=== PATIENT | female | born 1980 | race Caucasian/White ===

== ENCOUNTER → 2020-12-01 13:20 | Outpatient (BNVA) | payer MEDICAID, SELFPAY | PROVIDERS: Family Provider Internal Medicine; PCP Internal Medicine; Visit Provider Psychiatry & Neurology Psychiatry | DX: F33.1 Major depressive disorder, recurrent, moderate (principal); F41.1 Generalized anxiety disorder; Z63.4 Disappearance and death of family member | CPT/HCPCS: 99204 ==

== ENCOUNTER → 2021-05-17 09:38 | Outpatient (BNVA) | payer MEDICAID, SELFPAY | PROVIDERS: Family Provider Internal Medicine; PCP Internal Medicine; Visit Provider Psychiatry & Neurology Psychiatry | DX: F41.1 Generalized anxiety disorder (principal); F33.1 Major depressive disorder, recurrent, moderate; Z63.4 Disappearance and death of family member | CPT/HCPCS: 99214 ==

== ENCOUNTER → 2021-05-30 09:57 | Outpatient (BNVA) | payer MEDICAID, SELFPAY | PROVIDERS: Family Provider Internal Medicine; PCP Internal Medicine; Visit Provider Nurse Practitioner Family | DX: Z20.822 Contact with and (suspected) exposure to COVID-19 (principal) | CPT/HCPCS: 87635 ==

== ENCOUNTER 2021-09-06 13:33 | Emergency (ER) | payer MEDICAID, SELFPAY ==
[2021-09-06 13:46] VITALS: BP 139/93; PULSE 110; RESP 18; TEMP 36.8; O2SAT 95; BMI 45.4
--- NOTE | 2021-09-06 13:58 | XR_ITS ---
WS: [id number] Exam: XR chest 1V portable [id number] Date/Time of Exam: 09/06/2021 1:58 PM Reason For Exam: chest pain Comparison 03/16/2009. There are patchy groundglass infiltrates scattered throughout both lungs suggesting pneumonia. Cardio mediastinal structures are unremarkable. No pleural effusions or pneumothorax. Regional bony elements are intact. XR/XR chest 1V portable [id number] IMPRESSION: 1. Patchy groundglass infiltrates noted bilaterally. The pattern is nonspecific but this can be seen with Covid pneumonia.
--- NOTE | 2021-09-06 13:59 | ECG_ITS ---
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
--- NOTE | 2021-09-06 14:54 | W.ED.COVID ---
Documented by User: AYAZ Larson 09/06/21 16:59 HPI - COVID General: Chief Complaint: Chest Pain Stated Complaint: CHEST PAIN/DIARRHEA/BODY ACHES Time Seen by Provider: 09/06/21 14:37 Source: patient Mode of arrival: ambulatory Limitations: no limitations Triage information: Has fever, cough or shortness of breath. No known COVID + exposure last 14 days History of Present Illness: HPI Narrative: Patient is a 41-year-old female presents to ED today with a complaint of body aches, chills, fevers of up to 100.2, diarrhea, chest pressure, and shortness of breath with exertion. Symptoms have been present over the past 7 days. No sick contacts. Patient is unvaccinated for COVID. She has not had any vomiting. MD complaint: has COVID symptoms Prior covid testing: no COVID 19 common symptoms: positive fever(s), chills, dyspnea, fatigue, body aches, headache(s), diarrhea and chest tightness; negative throat pain, nasal congestion, nausea or vomiting COVID 19 other sytmptoms: positive chest pain Onset (ago): day(s) Severity: moderate Pertinent comorbid conditions: obesity COVID Results: SARS-CoV-2 Antigen (Rapid) Negative (Negative) 09/06/21 16:50 09/06/21 SARS-CoV-2 RNA (RT-PCR) Not detected (NOT DETECTED) 05/30/21 09:57 05/30/21 Review of Systems Const: Reports: fever(s), chills, body aches and fatigue Eyes: Denies: change in vision, blurry vision or photophobia ENMT: Denies: throat pain, odynophagia, nasal discharge, nasal congestion, post nasal drip or sinus pain Card: Reports: chest pain and dyspnea on exertion; Denies: palpitations, irregular heart rhythm, edema, swelling of feet/ankles, lightheadedness, syncope, pre-syncope, orthopnea, leg pain with exertion or acrocyanosis Resp: Reports: dyspnea; Denies: wheezing, hemoptysis or chest congestion GI: Reports: diarrhea; Denies: abdominal pain, nausea or vomiting : Denies: flank pain or dysuria Musc: Reports: back pain and other (reports generalized body aches); Denies: neck pain, extremity pain, extremity swelling, joint pain or joint swelling Skin/Breast: Denies: rash Neuro: Reports: headache(s); Denies: numbness in extremities, weakness in extremities, sensory changes or dizziness PFSH ED PFSH: Social History Smoking and tobacco status: never smoked Second hand smoke exposure: Yes Physical Exam Const: COMMON NORMALS: no acute distress, patient oriented x3, no limitations and alert GENERAL APPEARANCE: cooperative NUTRITIONAL APPEARANCE: obese ORIENTATION/CONSCIOUSNESS: Yes awake, Yes oriented to person, Yes oriented to place and Yes oriented to time HENMT: COMMON NORMALS: normocephalic and atraumatic HEAD & SCALP: normocephalic and atraumatic Resp: COMMON NORMALS: normal respiratory effort and clear to auscultation bilaterally AUSCULTATION: clear to auscultation bilaterally Cardio: COMMON NORMALS: regular rhythm RATE: tachycardic RHYTHM: regular rhythm GI: COMMON NORMALS: Normal to inspection, nondistended, normoactive bowel sounds present, Soft to palpation, non-tender, No hepatosplenomegaly present and no masses PALPATION: Yes Soft to palpation and Yes No hepatosplenomegaly present Extremity: COMMON NORMALS: normal to inspection, capillary refill normal, no joint enlargement, no clubbing, cyanosis or edema, no calf tenderness and no pedal edema Neuro: COMMON NORMALS: patient oriented x3, moves all extremities, no focal motor deficits and no sensory deficits noted SENSORIUM/ORIENTATION: Yes alert, Yes oriented to person, Yes oriented to place and Yes oriented to time Skin: COMMON NORMALS: no rashes or lesions noted GENERAL SKIN EXAM: no rashes or lesions noted Course Vital Signs: Vital signs: Vital Signs Temperature 98.3 F 09/06/21 16:46 Pulse Rate 97 09/06/21 16:46 Respiratory Rate 16 09/06/21 16:46 Blood Pressure 141/97 09/06/21 16:46 Pulse Oximetry 96 09/06/21 16:46 MDM - COVID Lab Data: Labs: Lab Results 09/06/21 09/06/21 09/06/21 16:50 16:50 16:55 WBC 3.4 10^3/uL L 10^ 3/uL (4.0-10.0) RBC 4.17 10^6/uL 10^6 /uL (4.1-5.3) Hgb 13.5 g/dL g/dL (11.5-15.3) Hct 40.3 % % (37.0-47.0) MCV 96.6 fl fl (81-99) MCH 32.4 pg pg (28.0-34.0) MCHC 33.5 g/dL g/dL (30.0-36.0) RDW 12.0 % L % (12.1-15.1) Plt Count 165 10^3/cmm 10^3 /cmm (130-400) MPV 10.6 fL H fL (7.4-10.4) Neut % (Auto) 79.7 % % Lymph % (Auto) 13.2 % % [place] % (Auto) 6.5 % % Eos % (Auto) 0.0 % % Baso % (Auto) 0.3 % % Neut # (Auto) 2.72 10^3/uL 10^3 /uL (1.8-7.7) Lymph # (Auto) 0.5 10^3/uL L 10^ 3/uL (0.8-4.8) [place] # (Auto) 0.2 10^3/uL 10^3/ uL (0.2-0.9) Eos # (Auto) 0.0 10^3/uL 10^3/ uL (0.0-0.8) Baso # (Auto) 0.0 10^3/uL 10^3/ uL (0.0-0.1) Nucleated RBC % (a uto) 0 % % Nucleated RBCs # 0.0 /100WBC /100W BC Sodium Potassium Chloride Carbon Dioxide Anion Gap BUN Creatinine GFR Calculation Glucose Calculated Osmolal ity Calcium Total Bilirubin AST ALT Alkaline Phosphata se Troponin T Baselin e C-Reactive Protein Total Protein Albumin Globulin Procalcitonin Influenza Type A A g Negative (Negative) Influenza Type B A g Negative (Negative) SARS-CoV-2 Ag (Rap id) Negative (Negative) 09/06/21 09/06/21 16:55 16:55 WBC RBC Hgb Hct MCV MCH MCHC RDW Plt Count MPV Neut % (Auto) Lymph % (Auto) [place] % (Auto) Eos % (Auto) Baso % (Auto) Neut # (Auto) Lymph # (Auto) [place] # (Auto) Eos # (Auto) Baso # (Auto) Nucleated RBC % (a uto) Nucleated RBCs # Sodium 136 mmol/L mmol/L (136-145) Potassium 4.0 mmol/L mmol/L (3.5-5.1) Chloride 99 mmol/L mmol/L (98-107) Carbon Dioxide 24 mmol/L mmol/L (22-29) Anion Gap 17.0 (5-19) BUN 9 mg/dL mg/dL (6-20) Creatinine 0.7 mg/dL mg/dL (0.5-0.9) GFR Calculation 92.2 mL/min mL/mi n (90-130) Glucose 259 mg/dL H mg/dL (65-115) Calculated Osmolal ity 290 mOsm/kg mOsm/ kg (285-295) Calcium 7.5 mg/dL L mg/dL (8.5-10.5) Total Bilirubin 0.4 mg/dL mg/dL (0.15-1.2) AST 41 U/L H U/L (0-32) ALT 40 U/L H U/L (0-33) Alkaline Phosphata se 67 IU/L IU/L (35-105) Troponin T Baselin e 6 ng/L ng/L (0-10) C-Reactive Protein 108.4 mg/L H mg/L (0.0-4.9) Total Protein 6.1 g/dL L g/dL (6.6-8.7) Albumin 3.5 g/dL g/dL (3.5-5.2) Globulin 2.6 g/dL g/dL (1.3-4.6) Procalcitonin 0.07 ng/mL ng/mL (0-0.5) Influenza Type A A g Influenza Type B A g SARS-CoV-2 Ag (Rap id) Imaging Data: CXR: Radiologist's impression: [address] [address] XRay Report Signed Patient: Michaela Booker Unit #: [id number] : 1980 Age/Sex: 41 / F ADM Date: 09/06/21 Loc: ER Room/Bed: Attending Dr: Ordering Provider/Ordering MD: Fauzia Irizarry Date of Service: 09/06/21 Procedure(s): XR chest 1V portable [id number] Accession Number(s): [id number] Report Number: [id number] WS: [id number] Exam: XR chest 1V portable [id number] Date/Time of Exam: 09/06/2021 1:58 PM Reason For Exam: chest pain Comparison 03/16/2009. There are patchy groundglass infiltrates scattered throughout both lungs suggesting pneumonia. Cardiomediastinal structures are unremarkable. No pleural effusions or pneumothorax. Regional bony elements are intact. XR/XR chest 1V portable [id number] IMPRESSION: 1. Patchy groundglass infiltrates noted bilaterally. The pattern is nonspecific but this can be seen with Covid pneumonia. Dictated By: Tr Rock DO Signed By: Tr Rock DO Signed Date/Time: 09/06/21 1420 DD/ 1418 COVID Results: SARS-CoV-2 Antigen (Rapid) Negative (Negative) 09/06/21 16:50 09/06/21 SARS-CoV-2 RNA (RT-PCR) Not detected (NOT DETECTED) 05/30/21 09:57 05/30/21 Discharge Plan Discharge Patient Disposition: Home Clinical Impression: Pneumonia Qualifiers: Pneumonia type: due to unspecified organism Laterality: bilateral Lung location: unspecified part of lung Qualified Code(s): J18.9 - Pneumonia, unspecified organism Condition: Stable Prescriptions: New doxycycline monohydrate 100 mg capsule 100 mg PO BID 7 Days Qty: 14 RF: 0 budesonide 90 mcg/actuation aerosol powdr breath activated 2 inh inhalation BID Qty: 1 RF: 0 albuterol sulfate 90 mcg/actuation HFA aerosol inhaler 2 inh inhalation Q4H PRN (Reason: shortness of breath or wheezing) Qty: 8.5 RF: 0 No Action omeprazole 10 mg capsule,delayed release(DR/EC) 10 mg PO DAILY RF: 0 multivitamin Tablet 1 tab PO QAM RF: 0 famotidine 40 mg tablet 40 mg PO .HS RF: 0 ferrous sulfate 325 mg (65 mg iron) tablet 325 mg PO DAILY RF: 0 ascorbic acid (vitamin C) 500 mg capsule PO DAILY RF: 0 sertraline [Zoloft] 100 mg tablet 100 mg PO DAILY Qty: 30 RF: 1 trazodone 100 mg tablet 200 mg PO .HS PRN (Reason: insomnia) Qty: 60 RF: 1 Discharge Orders: Discharge ED (Routine); Ordered 09/06/21 Ordered By: Christiano Ogden Referrals: Han Beckford DO [Primary Care Provider] - Discharge Diet: Usual diet Discharge Activity: Increase activity as tolerated Patient Instructions: Pneumonia (ED), Opioid Safety Activity Restrictions/Additional Instructions: Home and rest. Drink plenty of water. Use acetaminophen and ibuprofen for discomfort and fever. Take medications as directed. Use the budesonide inhaler 2 inhalations twice a day to help with shortness of breath and pneumonia. Take doxycycline, antibiotic, 100 mg twice a day for the next 7 days. Use albuterol inhaler 2 inhalations every 4 hours as needed for increased shortness of breath or wheezing. Follow-up with primary care in 3 days for recheck. We did do a Covid PCR test that will be sent off and the results will come back in 1 to 2 days. At that time if it does come back positive you may still qualify for monoclonal antibody treatment. At this time your Covid antigen test was negative, but your x-ray does show pneumonia. We have treated you for pneumonia. Return to the ER for worsening symptoms or new concerns. Sign Out Sign Out Data: Patient Sign Out occurred on 09/06/21 at 17:03. Patient's care was discussed, and care was transferred from to Christiano Ogden. Post-Handoff Eval: Patient is resting well, continues to move oxygen very well in the ER. Review of the labs noted some elevated inflammatory markers with a CRP. Covid antigen test was negative. We will send a PCR test to [facility] for further evaluation. Chest x-ray noted a viral type pneumonia. We will go ahead and cover patient with albuterol and budesonide inhalers and then doxycycline to cover any secondary bacterial component. I reviewed this with patient with recommendations for follow-up with primary care or return to the ER for worsening symptoms. Patient reported understanding and agreed to plan. Coding Level of Care Code ED Microfilm Equipment Inspector for Chg Fwd Exam Comprehensive Documented by User: LYDIA Bueno 09/06/21 18:10 HPI - COVID General: Chief Complaint: Chest Pain Stated Complaint: CHEST PAIN/DIARRHEA/BODY ACHES Time Seen by Provider: 09/06/21 14:37 COVID Results: SARS-CoV-2 Antigen (Rapid) Negative (Negative) 09/06/21 16:50 09/06/21 SARS-CoV-2 RNA (RT-PCR) Not detected (NOT DETECTED) 05/30/21 09:57 05/30/21 PFSH ED PFSH: Social History Smoking and tobacco status: never smoked Second hand smoke exposure: Yes Course Vital Signs: Vital signs: Vital Signs Temperature 98.3 F 09/06/21 16:46 Pulse Rate 97 09/06/21 16:46 Respiratory Rate 16 09/06/21 16:46 Blood Pressure 141/97 09/06/21 16:46 Pulse Oximetry 96 09/06/21 16:46 MDM - COVID Lab Data: Labs: Lab Results 09/06/21 09/06/21 09/06/21 16:50 16:50 16:55 WBC 3.4 10^3/uL L 10^ 3/uL (4.0-10.0) RBC 4.17 10^6/uL 10^6 /uL (4.1-5.3) Hgb 13.5 g/dL g/dL (11.5-15.3) Hct 40.3 % % (37.0-47.0) MCV 96.6 fl fl (81-99) MCH 32.4 pg pg (28.0-34.0) MCHC 33.5 g/dL g/dL (30.0-36.0) RDW 12.0 % L % (12.1-15.1) Plt Count 165 10^3/cmm 10^3 /cmm (130-400) MPV 10.6 fL H fL (7.4-10.4) Neut % (Auto) 79.7 % % Lymph % (Auto) 13.2 % % [place] % (Auto) 6.5 % % Eos % (Auto) 0.0 % % Baso % (Auto) 0.3 % % Neut # (Auto) 2.72 10^3/uL 10^3 /uL (1.8-7.7) Lymph # (Auto) 0.5 10^3/uL L 10^ 3/uL (0.8-4.8) [place] # (Auto) 0.2 10^3/uL 10^3/ uL (0.2-0.9) Eos # (Auto) 0.0 10^3/uL 10^3/ uL (0.0-0.8) Baso # (Auto) 0.0 10^3/uL 10^3/ uL (0.0-0.1) Nucleated RBC % (a uto) 0 % % Nucleated RBCs # 0.0 /100WBC /100W BC Sodium Potassium Chloride Carbon Dioxide Anion Gap BUN Creatinine GFR Calculation Glucose Calculated Osmolal ity Calcium Total Bilirubin AST ALT Alkaline Phosphata se Troponin T Baselin e C-Reactive Protein Total Protein Albumin Globulin Procalcitonin Influenza Type A A g Negative (Negative) Influenza Type B A g Negative (Negative) SARS-CoV-2 Ag (Rap id) Negative (Negative) 09/06/21 09/06/21 16:55 16:55 WBC RBC Hgb Hct MCV MCH MCHC RDW Plt Count MPV Neut % (Auto) Lymph % (Auto) [place] % (Auto) Eos % (Auto) Baso % (Auto) Neut # (Auto) Lymph # (Auto) [place] # (Auto) Eos # (Auto) Baso # (Auto) Nucleated RBC % (a uto) Nucleated RBCs # Sodium 136 mmol/L mmol/L (136-145) Potassium 4.0 mmol/L mmol/L (3.5-5.1) Chloride 99 mmol/L mmol/L (98-107) Carbon Dioxide 24 mmol/L mmol/L (22-29) Anion Gap 17.0 (5-19) BUN 9 mg/dL mg/dL (6-20) Creatinine 0.7 mg/dL mg/dL (0.5-0.9) GFR Calculation 92.2 mL/min mL/mi n (90-130) Glucose 259 mg/dL H mg/dL (65-115) Calculated Osmolal ity 290 mOsm/kg mOsm/ kg (285-295) Calcium 7.5 mg/dL L mg/dL (8.5-10.5) Total Bilirubin 0.4 mg/dL mg/dL (0.15-1.2) AST 41 U/L H U/L (0-32) ALT 40 U/L H U/L (0-33) Alkaline Phosphata se 67 IU/L IU/L (35-105) Troponin T Baselin e 6 ng/L ng/L (0-10) C-Reactive Protein 108.4 mg/L H mg/L (0.0-4.9) Total Protein 6.1 g/dL L g/dL (6.6-8.7) Albumin 3.5 g/dL g/dL (3.5-5.2) Globulin 2.6 g/dL g/dL (1.3-4.6) Procalcitonin 0.07 ng/mL ng/mL (0-0.5) Influenza Type A A g Influenza Type B A g SARS-CoV-2 Ag (Rap id) COVID Results: SARS-CoV-2 Antigen (Rapid) Negative (Negative) 09/06/21 16:50 09/06/21 SARS-CoV-2 RNA (RT-PCR) Not detected (NOT DETECTED) 05/30/21 09:57 05/30/21 Discharge Plan Discharge Patient Disposition: Home Clinical Impression: Pneumonia Qualifiers: Pneumonia type: due to unspecified organism Laterality: bilateral Lung location: unspecified part of lung Qualified Code(s): J18.9 - Pneumonia, unspecified organism Condition: Stable Prescriptions: New doxycycline monohydrate 100 mg capsule 100 mg PO BID 7 Days Qty: 14 RF: 0 budesonide 90 mcg/actuation aerosol powdr breath activated 2 inh inhalation BID Qty: 1 RF: 0 albuterol sulfate 90 mcg/actuation HFA aerosol inhaler 2 inh inhalation Q4H PRN (Reason: shortness of breath or wheezing) Qty: 8.5 RF: 0 No Action omeprazole 10 mg capsule,delayed release(DR/EC) 10 mg PO DAILY RF: 0 multivitamin Tablet 1 tab PO QAM RF: 0 famotidine 40 mg tablet 40 mg PO .HS RF: 0 ferrous sulfate 325 mg (65 mg iron) tablet 325 mg PO DAILY RF: 0 ascorbic acid (vitamin C) 500 mg capsule PO DAILY RF: 0 sertraline [Zoloft] 100 mg tablet 100 mg PO DAILY Qty: 30 RF: 1 trazodone 100 mg tablet 200 mg PO .HS PRN (Reason: insomnia) Qty: 60 RF: 1 Discharge Orders: Discharge ED (Routine); Ordered 09/06/21 Ordered By: Christiano Ogden Referrals: Han Beckford, [Primary Care Provider] - Discharge Diet: Usual diet Discharge Activity: Increase activity as tolerated Patient Instructions: Pneumonia (ED), Opioid Safety Activity Restrictions/Additional Instructions: Home and rest. Drink plenty of water. Use acetaminophen and ibuprofen for discomfort and fever. Take medications as directed. Use the budesonide inhaler 2 inhalations twice a day to help with shortness of breath and pneumonia. Take doxycycline, antibiotic, 100 mg twice a day for the next 7 days. Use albuterol inhaler 2 inhalations every 4 hours as needed for increased shortness of breath or wheezing. Follow-up with primary care in 3 days for recheck. We did do a Covid PCR test that will be sent off and the results will come back in 1 to 2 days. At that time if it does come back positive you may still qualify for monoclonal antibody treatment. At this time your Covid antigen test was negative, but your x-ray does show pneumonia. We have treated you for pneumonia. Return to the ER for worsening symptoms or new concerns. Sign Out Sign Out Data: Patient Sign Out occurred on 09/06/21 at 17:03. Patient's care was discussed, and care was transferred from to Christiano Ogden. Post-Handoff Eval: Patient is resting well, continues to move oxygen very well in the ER. Review of the labs noted some elevated inflammatory markers with a CRP. Covid antigen test was negative. We will send a PCR test to [facility] for further evaluation. Chest x-ray noted a viral type pneumonia. We will go ahead and cover patient with albuterol and budesonide inhalers and then doxycycline to cover any secondary bacterial component. I reviewed this with patient with recommendations for follow-up with primary care or return to the ER for worsening symptoms. Patient reported understanding and agreed to plan. Coding Level of Care Code ED Microfilm Equipment Inspector for Elizabeth Fwd Exam Comprehensive
--- NOTE | 2021-09-06 15:59 | ECG_ITS ---
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1980 Requested By: Fauzia Irizarry Order Number: [id number] Reading MD: FREDDIE PALOMARES Measurements Intervals [place] Rate: 92 P: 46 [place]: 130 QRS: 6 QRSD: 97 T: 31 QT: 374 QTc: 463 Interpretive Statements SINUS RHYTHM POSSIBLE RIGHT VENTRICULAR CONDUCTION DELAY [RSR (QR) IN V1/V2] Compared to ECG 09/06/2021 13:44:47 Sinus tachycardia no longer present Electronically Signed On 09-06-2021 20:04:42 COMPOUND MACHINE OPERATOR by FREDDIE PALOMARES [email or web address] [email or web address]/store/[id number]
[2021-09-06 16:46] VITALS: BP 141/97; PULSE 97; RESP 16; TEMP 36.8; O2SAT 96
[2021-09-06 17:10] LABS: Basophils % 0.3 %; Hematocrit 40.3 % (37.0-47.0); Hemoglobin 13.5 g/dL (11.5-15.3); Lymphocytes # 0.5 10^3/uL (0.8-4.8); Lymphocytes % 13.2 %; Mean Corpuscular HGB Conc 33.5 g/dL (30.0-36.0); Mean Corpuscular Hemoglobin 32.4 pg (28.0-34.0); Mean Corpuscular Volume 96.6 fl (81-99); Mean Platelet Volume 10.6 fL (7.4-10.4); Monocytes # 0.2 10^3/uL (0.2-0.9); Monocytes % 6.5 %; Neutrophils # 2.72 10^3/uL (1.8-7.7); Neutrophils % 79.7 %; Nucleated Red Blood Cells % 0 %; Platelet Count 165 10^3/cmm (130-400); Red Blood Count 4.17 10^6/uL (4.1-5.3); White Blood Count 3.4 10^3/uL (4.0-10.0)
[2021-09-06 17:28] LABS: Troponin(5th) Baseline 6 ng/L (0-10)
[2021-09-06 17:30] LABS: Alanine Aminotransferase 40 U/L (0-33); Albumin Level 3.5 g/dL (3.5-5.2); Alkaline Phosphatase 67 IU/L (35-105); Aspartate Amino Transferase 41 U/L (0-32); Blood Urea Nitrogen 9 mg/dL (6-20); C Reactive Protein 108.4 mg/L (0.0-4.9); Calcium 7.5 mg/dL (8.5-10.5); Carbon Dioxide 24 mmol/L (22-29); Chloride 99 mmol/L (98-107); Globulin 2.6 g/dL (1.3-4.6); Glomerular Filtration Rate 92.2 mL/min (90-130); Glucose 259 mg/dL (65-115); Osmolality Calculated 290 mOsm/kg (285-295); Sodium 136 mmol/L (136-145); Total Bilirubin 0.4 mg/dL (0.15-1.2); Total Protein 6.1 g/dL (6.6-8.7)
[2021-09-06 17:37] LABS: Procalcitonin 0.07 ng/mL (0-0.5)
[2021-09-06 17:48] LABS: Influenza A by IFA Negative (Negative); Influenza B by IFA Negative (Negative); SARS Covid-2 Antigen Negative (Negative)
[2021-09-06] MEDS: dexamethasone 10 mg/mL INJ IM (19:14)
[2021-09-06 19:15] VITALS: BP 132/78; PULSE 93; RESP 18; O2SAT 96
[2021-09-06] MEDS: doxycycline 100 mg Tablet PO (19:15)
[2021-09-06 19:19] LABS: Troponin 5 2HR Delta 0 ABS# (0-10)
[2021-09-07 14:59] LABS: Coronavirus Test Green County Detected
--- NOTE | 2021-09-07 16:38 | PC.NURSE ---
Patient notified of positive COVID-19 test result
--- NOTE | 2021-09-08 09:16 | PC.NURSE ---
Informed pt of Positive COVID results
== END 2021-09-06 19:17 | disposition home or self-care (01) ==
PROVIDERS: Physician Assistant; Emergency Provider Nurse Practitioner Family; PCP Internal Medicine
DX: U07.1 COVID-19 (principal); J12.82 Pneumonia due to coronavirus disease 2019; Z77.22 Contact with and (suspected) exposure to environmental tobacco smoke (acute) (chronic)
CPT/HCPCS: 71045; 80053; 84145; 84484; 85025; 86140; 87426; 87635; 87804; 93005; 96372; 99283; J1100

== ENCOUNTER → 2021-11-09 08:59 | Outpatient (BNVA) | payer MEDICAID, SELFPAY | PROVIDERS: PCP Internal Medicine; Visit Provider Nurse Practitioner Family | DX: Z20.822 Contact with and (suspected) exposure to COVID-19 (principal) | CPT/HCPCS: 87635 ==

== ENCOUNTER 2021-12-23 07:47 | Outpatient (CLI) | payer MEDICAID, SELFPAY ==
--- NOTE | 2021-12-23 07:45 | USCV_ITS ---
Michaela Booker Age: 41 Gender: F : 1980 Exam Date: 12/23/2021 07:59 Ordering Phys: Valerie Hartley MD ([email or web address]) Technologist: Yovana Donaldson Exam Location: [facility] Indication: SOB CHEST PAIN RAPID HEART RATE. 6 MONTHS POST COVID BP: 150 / 90 HR: 72 Rhythm: Sinus Technical Quality: Adequate MEASUREMENTS (Male / Female) Normal Values 2D ECHO LV Diastolic Diameter PLAX 2.4 cm 4.2 - 5.9 / 3.9 - 5.3 cm LV Systolic Diameter PLAX 1.5 cm LV Chamber Size 3.0 cm IVS Diastolic Thickness 1.4 cm 0.6 - 1.0 / 0.6 - 0.9 cm IVS Systolic Thickness 1.1 cm LVPW Diastolic Thickness 1.4 cm 0.6 - 1.0 / 0.6 - 0.9 cm LVPW Systolic Thickness 1.4 cm RV Chamber Size 3.6 cm LVOT Diameter 2.0 cm LV Ejection Fraction 2D Teich 67.5 % LV Ejection Fraction MOD 2C 25.2 % LV Ejection Fraction 2C AL 24.3 % LA Diameter 2.9 cm LA Width 2.3 cm LA Height 4.4 cm RA Width 4.3 cm RA Height 3.3 cm Aorta at Sinotubular Diameter 3.0 cm M-MODE Aortic Annulus Diameter 3.2 cm LA Ao Ratio MM 1.2 MV E Point Septal Separation 0.6 cm DOPPLER AV Peak Velocity 143.0 cm/s LVOT Peak Velocity 80.7 cm/s AV Area Cont Eq vti 1.9 cm squared AV Area Cont Eq pk 1.8 cm squared MV Area PHT 3.3 cm squared Mitral E to A Ratio 1.2 MV E' Velocity 38.5 cm/s Mitral E to MV E' Ratio 9.1 Mitral E to LV E' Lateral Ratio 11.6 Mitral E to LV E' Septal Ratio 7.4 TR Peak Velocity 135.7 cm/s TR Peak Gradient 7.4 mmHg TR Mean Velocity 91.8 cm/s TR Mean Gradient 4.1 mmHg TR Velocity Time Integral 27.1 cm TV Peak E Velocity 81.0 cm/s Right Atrial Pressure 3.0 mmHg Pulmonary Artery Systolic Pressu 10.4 mmHg PV Peak Velocity 59.0 cm/s RV Acceleration Time 0.2 s RV Ejection Time 0.4 s RV AcT/ET 0.4 FINDINGS Left Ventricle Normal left ventricular size, systolic function and wall thickness, with no regional wall motion abnormalities. Left ventricular ejection fraction is estimated at 70-75 %. Normal diastolic function. Right Ventricle Normal right ventricular size and systolic function. Right ventricular systolic pressure 10.4 mmHg. Right Atrium Normal right atrial size. Left Atrium Normal left atrial size. Mitral Valve Structurally normal mitral valve. No mitral valve stenosis. Trace mitral valve regurgitation. Aortic Valve Structurally normal trileaflet aortic valve. No aortic valve stenosis. No aortic valve regurgitation. Tricuspid Valve Structurally normal tricuspid valve. Trace tricuspid valve regurgitation. Pulmonic Valve Pulmonic valve not well visualized. Pericardium No pericardial effusion. Aorta Normal sized aortic root. CONCLUSIONS 1. Normal left ventricular size, systolic function and wall thickness, with no regional wall motion abnormalities. Left ventricular ejection fraction is estimated at 70-75 %. Normal diastolic function. 2. No significant valvular abnormality. 3. No prior similar studies to compare. Valerie Hartley MD (Electronically Signed) Final Date: 23 December 2021 18:33 S
[2021-12-23] MEDS: perflutren protein-a microsphr 0.22 mg/mL SDV 3 mL IV (08:48)
== END 2021-12-23 07:48 | disposition home or self-care (01) ==
PROVIDERS: PCP Internal Medicine; Visit Provider Internal Medicine Cardiovascular Disease
DX: R07.9 Chest pain, unspecified (principal); R00.0 Tachycardia, unspecified; R06.02 Shortness of breath
CPT/HCPCS: C8929

== ENCOUNTER → 2022-03-01 13:15 | Outpatient (BNVA) | payer MEDICAID, SELFPAY | PROVIDERS: PCP Internal Medicine; Visit Provider Psychiatry & Neurology Psychiatry | DX: F41.1 Generalized anxiety disorder (principal); F33.1 Major depressive disorder, recurrent, moderate | CPT/HCPCS: 99214 ==

== ENCOUNTER → 2024-06-26 09:17 | Outpatient (BNVA) | payer MEDICAID, SELFPAY | PROVIDERS: Visit Provider Registered Nurse Neonatal Intensive Care | DX: S62.346A Nondisplaced fracture of base of fifth metacarpal bone, right hand, initial encounter for closed fracture (principal); W19.XXXA Unspecified fall, initial encounter | CPT/HCPCS: 73130 ==

== ENCOUNTER → 2024-06-30 10:24 | Outpatient (BNVA) | payer SELFPAY | PROVIDERS: Visit Provider Nurse Practitioner | DX: S62.346A Nondisplaced fracture of base of fifth metacarpal bone, right hand, initial encounter for closed fracture (principal); X58.XXXA Exposure to other specified factors, initial encounter | CPT/HCPCS: 73130 ==

== ENCOUNTER 2024-06-30 12:16 | Outpatient (CLI) | payer SELFPAY | END 2024-06-30 12:17 | disposition home or self-care (01) | LOC: SPT 12:17 | PROVIDERS: Visit Provider Nurse Practitioner | DX: Z46.89 Encounter for fitting and adjustment of other specified devices (principal); S62.346D Nondisplaced fracture of base of fifth metacarpal bone, right hand, subsequent encounter for fracture with routine healing; X58.XXXD Exposure to other specified factors, subsequent encounter | CPT/HCPCS: L3984 ==

== ENCOUNTER → 2024-07-07 10:47 | Outpatient (BNVA) | payer SELFPAY | PROVIDERS: Visit Provider Nurse Practitioner | DX: S62.347D Nondisplaced fracture of base of fifth metacarpal bone, left hand, subsequent encounter for fracture with routine healing (principal); X58.XXXD Exposure to other specified factors, subsequent encounter | CPT/HCPCS: 73130 ==

== ENCOUNTER → 2024-07-21 08:48 | Outpatient (BNVA) | payer OTHER, SELFPAY | PROVIDERS: PCP Internal Medicine; Visit Provider Nurse Practitioner | DX: M25.531 Pain in right wrist (principal); S62.347D Nondisplaced fracture of base of fifth metacarpal bone, left hand, subsequent encounter for fracture with routine healing; X58.XXXD Exposure to other specified factors, subsequent encounter | CPT/HCPCS: 73110; 73130 ==

== ENCOUNTER → 2024-08-08 08:44 | Outpatient (BNVA) | payer OTHER, SELFPAY | PROVIDERS: PCP Internal Medicine; Visit Provider Nurse Practitioner | DX: S62.347D Nondisplaced fracture of base of fifth metacarpal bone, left hand, subsequent encounter for fracture with routine healing (principal); X58.XXXD Exposure to other specified factors, subsequent encounter | CPT/HCPCS: 73130 ==

== ENCOUNTER 2024-12-22 17:29 | Emergency (ER) | payer MEDICAID, SELFPAY ==
[2024-12-22 17:34] VITALS: BP 137/64; PULSE 70; TEMP 36.9; O2SAT 100; BMI 31.1
[2024-12-22 18:17] LABS: Basophils % 0.4 %; Eosinophils % 0.2 %; Hematocrit 28.8 % (36-47); Lymphocytes % 19.7 %; Mean Corpuscular HGB Conc 27.4 g/dL (30-55); Mean Corpuscular Hemoglobin 19.6 pg (27-33); Mean Corpuscular Volume 71.5 fl (85-98); Mean Platelet Volume 10.7 fL (7.4-10.4); Monocytes # 0.4 10^3/uL (0.2-0.9); Monocytes % 8.5 %; Neutrophils # 3.52 10^3/uL (1.8-7.7); Neutrophils % 70.8 %; Nucleated Red Blood Cells % 0 %; Platelet Count 308 10^3/cmm (157-399); Red Blood Count 4.03 10^6/uL (3.85-5.65); White Blood Count 4.97 10^3/uL (3.29-11.43)
[2024-12-22 18:19] LABS: Bilirubin Urine Negative (Negative); Blood Urine Negative (Negative); Glucose Urine UA 2+ (Normal); Ketones Urine Trace (Negative); Leukocyte Esterase Urine 1+ (Negative); Nitrate Urine Negative (Negative); Protein Urine 1+ (Negative); Urine Appearance Cloudy (CLEAR); Urine Color Yellow (Yellow); pH Urine 5.5 (5-7)
--- NOTE | 2024-12-22 18:20 | ECG_ITS ---
[facility]: [facility]24-[facility]22 Pat Name: Michaela Booker Department: Room: Gender: Female Scientific Affairs Manager: : 1980 Requested By: Elizabeth Blanca Order Number: [id number] Saturnino MD: Lilo Armando M.D. Measurements Intervals [place] Rate: 65 P: 51 [place]: 116 QRS: 21 QRSD: 84 T: 38 QT: 410 QTc: 426 Interpretive Statements SINUS RHYTHM WITH SHORT GA INTERVAL POSSIBLE RIGHT VENTRICULAR CONDUCTION DELAY [RSR (QR) IN V1/V2] SEPTAL MYOCARDIAL INFARCTION , OF INDETERMINATE AGE [40+ ms Q WAVE IN V1/V2] INTERPRETATION BASED ON A DEFAULT AGE OF 40 YEARS Compared to ECG 09/06/2021 17:37:26 Short GA interval now present Myocardial infarct finding now present Electronically Signed On 12-24-2024 19:28:20 CDT by Lilo Armando M.D. [id number] [id number]
[2024-12-22 18:23] LABS: Add Urine Microscopic? YES; Bacteria Urine 4+ /hpf; Hyaline Casts Urine 8.26 /lpf; RBC Urine 0-2 /hpf (0-2); WBC Urine 21-50 /hpf (0-5)
[2024-12-22 18:26] LABS: Specific Gravity, Urine 1.034 (1.005-1.030); UA Slide Review UA Slide Review Perf
[2024-12-22 18:27] LABS: Add Urine Culture? Yes
[2024-12-22 18:31] LABS: Amorphous Sediment Urine TRACE /hpf; Mucus Urine 3+ /hpf
[2024-12-22 18:34] LABS: Alanine Aminotransferase 15 U/L (0-33); Alkaline Phosphatase 58 U/L (35-105); Anion Gap 15.3 (5-19); Aspartate Amino Transferase 20 U/L (0-32); Blood Urea Nitrogen 11 mg/dL (6-20); Calcium 8.4 mg/dL (8.5-10.5); Carbon Dioxide 23 mmol/L (22-29); Chloride 103 mmol/L (98-107); Creatinine Clr Calc Pharmacy 102.6036; Globulin 2.8 g/dL (1.3-4.6); Glomerular Filtration Rate 90.9 mL/min (90-130); Glucose 132 mg/dL (65-115); Lipase 58 U/L (13-60); Osmolality Calculated 285 mOsm/kg (285-295); Potassium 4.3 mmol/L (3.5-5.1); Sodium 137 mmol/L (136-145); Total Bilirubin 0.3 mg/dL (0.15-1.2); Total Protein 6.8 g/dL (6.6-8.7)
[2024-12-22 18:36] LABS: HCG, Serum Qual Negative (Negative)
--- NOTE | 2024-12-22 19:05 | ED_ITS ---
HPI - Abdominal Pain 2 General: Chief Complaint: Abdominal Pain Stated Complaint: abd and back pain, urgent care sent Time Seen by Provider: 12/22/24 18:18 History of Present Illness: 44-year-old female with a history of obe sity, hypertension and GERD with multiple previous abdominal surgeries including a gastric sleeve which was then converted to a gastric bypass after complications who presents to the emergency room with abdominal pain and nausea. She describes very tender left upper quadrant epigastric abdominal pain with the feeling of distention. She has had dry heaving but has not been able to vomit. No fevers. No chest pain. No shortness of breath. No altered mental status. Related Data Home Medications ?Medication ?Instructions ?Recorded ?Confirmed multivitamin 1 tab PO QAM 12/01/20 Previous Rx's ?Medication ?Instructions ?Recorded albuterol sulfate 90 mcg/actuation 2 inh inhalation Q4 H PRN shortness 09/06/21 aerosol inhaler of breath or wheezing #8.5 g richie tramadol 50 mg tablet 50 mg PO Q8H PRN pain 7 days #21 06/30/24 tabs ulnar gutter fastform splint #1 ea 06/30/24 trazodone 100 mg tablet 200 mg (2 x 100 mg) PO .HS P RN 08/08/24 insomnia #60 tabs fluoxetine 40 mg capsule (Prozac) 40 mg PO DAILY #30 c aps 10/03/24 cefdinir 300 mg capsule 300 mg PO BID 7 days #14 cap s 12/22/24 ondansetron 8 mg disintegrating 8 mg PO Q6H #14 tabs 0 12/22/24 tablet tramadol 50 mg tablet 50 mg PO Q8H PRN pain #20 ta bs 12/22/24 Allergies Allergy/AdvReac Type Severity Reaction Status Date / Time hydrocodone AdvReac Severe Itchy, Verified 12/22/24 17:43 makes me crazy Review of Systems 2 Narrative: Constitutional symptoms: Negative except as documented in HPI. Skin symptoms: Negative except as documented in HPI. Eye symptoms: Negative except as documented in HPI. ENMT symptoms: Negative except as documented in HPI. Respiratory symptoms: Negative except as documented in HPI. Cardiovascular symptoms: Negative except as documented in HPI. Gastrointestinal symptoms: Negative except as documented in HPI. Genitourinary symptoms: Negative except as documented in HPI. Musculoskeletal symptoms: Negative except as documented in HPI. Neurologic symptoms: Negative except as documented in HPI. Psychiatric symptoms: Negative except as documented in HPI. Endocrine symptoms: Negative except as documented in HPI. PFSH ED 2 PFSH: Medical History Fracture of fifth metacarpal bone of left hand Psychiatric care Morbid obesity with BMI of 40.0-44.9, adult Migraine HTN (hypertension) GERD (gastroesophageal reflux disease) Surgical History S/P cholecystectomy S/P gastric sleeve procedure (~2015) Family History Father Diabetes Hypertension Myocardial infarct Mother Diabetes Hypertension Stroke Social History Smoking and tobacco/nicotine status: never used tobacco/nicotine Second hand smoke exposure: Yes Physical Exam 2 Narrative: EXAM NARRATIVE: General: Alert, no acute distress. Skin: Warm, dry. Head: Normocephalic, atraumatic. Neck: Supple, trachea midline. Eye: Extraocular movements are intact. Ears, nose, mouth and throat: mucosa moist. Cardiovascular: Regular, Normal peripheral perfusion. Respiratory: Lungs are clear to auscultation, respirations are non-labored, breath sounds are equal, Symmetrical chest wall expansion. Gastrointestinal: Soft, extreme tenderness to palpation over the entire upper abdomen., Non distended Musculoskeletal: Normal ROM, no deformity. Neurological: Alert and oriented, No focal neurological deficit observed. Psychiatric: Cooperative, appropriate mood & affect. Course 2 Vital Signs: Vital signs: Vital Signs Temperature 98.4 F 12/22/24 17:34 Pulse Rate 66 12/22/24 19:32 Respiratory Rate 16 12/22/24 19:58 Blood Pressure 133/68 12/22/24 19:32 Pulse Oximetry 94 12/22/24 19:58 Oxygen Delivery Me thod Room Air 12/22/24 19:32 MDM - Abdominal Pain Medical Decision Making Medical decision making: Differential diagnosis including but not limited to and based on the above HPI, review of systems and physical exam: In this patient with epigastric pain differential would include cholelithiasis or cholecystitis. Hepatitis. Diverticulitis. Constipation. UTI. colitis. small bowel obstruction. crohn's flare. pancreatitis. gastritis. peptic ulcer. also concern for acute cardiac event. Orders placed to evaluate differential diagnosis based on the above differential, HPI and physical exam Lab Review: Laboratory results were reviewed and interpreted by myself the emergency room physician. No leukocytosis. Patient does have anemia with a hemoglobin of 7.9. Most recent was from 2020 and she was normal at that time. However since then she says she has been told she has iron deficiency. No renal failure. Patient does have a significant UTI with 4+ bacteria. CT of the abdomen pelvis with contrast: Prominent fluid in the small bowel without dilatation may reflect enteritis. Some esophageal wall thickening. Gastric surgical sutures. No signs of diverticulitis or obstruction. This was reviewed and interpreted by myself the emergency room physician. I also reviewed the radiology report. I discussed these findings with the patient. I reviewed the patient's medical record. Reexamination: Patient's pain has improved with morphine. She received fluids and antibiotics. We discussed her anemia and that she needs to have repeat lab work with her primary very soon and to return to the emergency room if symptoms worsen etc. She has no increased work of breathing. No altered mental status. Assessment and plan: Urinary tract infection Dehydration Gastroenteritis Anemia ?Fluids and Rocephin in the emergency room - Discharged home - Discussed plan with patient. Answered any questions. - Evaluation and treatment of this problem were appropriate in the emergency setting. Lab Data 12/22/24 18:02 12/22/24 18:02 Labs/Radiology: Radiology Impressions Abdomen/Pelvis CT 12/22/24 19:05 IMPRESSION: 1. Prominent fluid in the small bowel without dilation may reflect an enteritis. 2. Left ovary 2.1 cm peripherally enhancing cyst suggestive of a partially collapsed follicle. 3. Distal esophageal wall thickening, please correlate for esophagitis. 4. Gastric surgical sutures. 5. Cholecystectomy. Laboratory Results WBC 4.97 10^3/uL (3.29-11.43) 12/22/24 18:02 RBC 4.03 10^6/uL (3.85-5.65) 12/22/24 18:02 Hgb 7.90 g/dL (11.27-16.99) L 12/22/24 18:02 Hct 28.8 % (36-47) L 12/22/24 18:02 MCV 71.5 fl (85-98) L 12/22/24 18:02 MCH 19.6 pg (27-33) L 12/22/24 18:02 MCHC 27.4 g/dL (30-55) L 12/22/24 18:02 RDW 17.0 % (12.1-15.1) H 12/22/24 18:02 Plt Count 308 10^3/cmm (157-399) 12/22/24 18:02 MPV 10.7 fL (7.4-10.4) H 12/22/24 18:02 Neut % (Auto) 70.8 % 12/22/24 18:02 Lymph % (Auto) 19.7 % 12/22/24 18:02 Bowman % (Auto) 8.5 % 12/22/24 18:02 Eos % (Auto) 0.2 % 12/22/24 18:02 Baso % (Auto) 0.4 % 12/22/24 18:02 Neut # (Auto) 3.52 10^3/uL (1.8-7.7) 12/22/24 18:02 Lymph # (Auto) 1.0 10^3/uL (0.8-4.8) 12/22/24 18:02 Bowman # (Auto) 0.4 10^3/uL (0.2-0.9) 12/22/24 18:02 Eos # (Auto) 0.0 10^3/uL (0.0-0.8) 12/22/24 18:02 Baso # (Auto) 0.0 10^3/uL (0.0-0.1) 12/22/24 18:02 Nucleated RBC % (auto) 0 % 12/22/24 18:02 Nucleated RBCs # 0.0 /100WBC 12/22/24 18:02 Sodium 137 mmol/L (136-145) 12/22/24 18:02 Potassium 4.3 mmol/L (3.5-5.1) 12/22/24 18:02 Chloride 103 mmol/L (98-107) 12/22/24 18:02 Carbon Dioxide 23 mmol/L (22-29) 12/22/24 18:02 Anion Gap 15.3 (5-19) 12/22/24 18:02 BUN 11 mg/dL (6-20) 12/22/24 18:02 Creatinine 0.7 mg/dL (0.5-0.9) 12/22/24 18:02 GFR Calculation 90.9 mL/min (90-130) 12/22/24 18:02 Glucose 132 mg/dL (65-115) H 12/22/24 18:02 Calculated Osmolality 285 mOsm/kg (285-295) 12/22/24 18:02 Calcium 8.4 mg/dL (8.5-10.5) L 12/22/24 18:02 Total Bilirubin 0.3 mg/dL (0.15-1.2) 12/22/24 18:02 AST 20 U/L (0-32) 12/22/24 18:02 ALT 15 U/L (0-33) 12/22/24 18:02 Alkaline Phosphatase 58 U/L (35-105) 12/22/24 18:02 Total Protein 6.8 g/dL (6.6-8.7) 12/22/24 18:02 Albumin 4.0 g/dL (3.5-5.2) 12/22/24 18:02 Globulin 2.8 g/dL (1.3-4.6) 12/22/24 18:02 Lipase 58 U/L (13-60) 12/22/24 18:02 HCG, Qual Negative (Negative) 12/22/24 18:02 Urine Color Yellow (Yellow) 12/22/24 18:05 Urine Appearance Cloudy (CLEAR) A 12/22/24 18:05 Urine pH 5.5 (5-7) 12/22/24 18:05 Ur Specific [place] 1.034 (1.005-1.030) H 12/22/24 18:05 Urine Protein 1+ (Negative) A 12/22/24 18:05 Urine Glucose (UA) 2+ (Normal) H 12/22/24 18:05 Urine Ketones Trace (Negative) 12/22/24 18:05 Urine Blood Negative (Negative) 12/22/24 18:05 Urine Nitrate Negative (Negative) 12/22/24 18:05 Urine Bilirubin Negative (Negative) 12/22/24 18:05 Urine Urobilinogen 1.0 mg/dL (Negative) 12/22/24 18:05 Ur Leukocyte Esterase 1+ (Negative) A 12/22/24 18:05 Urine RBC 0-2 /hpf (0-2) 12/22/24 18:05 Urine WBC 21-50 /hpf (0-5) H 12/22/24 18:05 Ur Squamous Epith Cells 11-20 /hpf (0-5) H 12/22/24 18:05 Amorphous Sediment Trace /hpf 12/22/24 18:05 Urine Bacteria 4+ /hpf (NONE) H 12/22/24 18:05 Hyaline Casts 8.26 /lpf 12/22/24 18:05 Urine Mucus 3+ /hpf 12/22/24 18:05 All radiology interpretation(s) finalized by discharge Discharge Plan Discharge Patient Disposition: Home Clinical Impression: UTI (urinary tract infection), Gastroenteritis, Dehydration, Anemia Condition: Stable Prescriptions: New tramadol 50 mg tablet 50 mg PO Q8H PRN (Reason: pain) Qty: 20 0RF ondansetron 8 mg tablet,disintegrating 8 mg PO Q6H Qty: 14 0RF Rx Instructions: Take 1/2-1 tab every 6 hours as needed for nausea and vomiting cefdinir 300 mg capsule 300 mg PO BID 7 Days Qty: 14 0RF No Action multivitamin Tablet 1 tab PO QAM trazodone 100 mg tablet 200 mg PO .HS PRN (Reason: insomnia) Qty: 60 2RF (DME) ulnar gutter fastform splint See Rx Instructions .Route .MEDSUPPLY Qty: 1 0RF Rx Instructions: As directed tramadol 50 mg tablet 50 mg PO Q8H PRN (Reason: pain) 7 Days Qty: 21 0RF fluoxetine [Prozac] 40 mg capsule 40 mg PO DAILY Qty: 30 1RF albuterol sulfate 90 mcg/actuation HFA aerosol inhaler 2 inh inhalation Q4H PRN (Reason: shortness of breath or wheezing) Qty: 8.5 0RF Discharge Orders: Discharge ED (Routine); Ordered 12/22/24 Ordered By: Elizabeth Moody Referrals: Davi Hyde MD [Primary Care Provider] - Discharge Diet: Usual diet Discharge Activity: Increase activity as tolerated Patient Instructions: Opioid Safety, Pain Management Activity Restrictions/Additional Instructions: You need to see your primary physician very soon about your low red blood cell counts/anemia. If symptoms worsen or do not improve, or if you develop worsening weakness and dizziness, altered mental status or fevers please return to the emergency room or seek urgent medical care. Thank you for choosing [facility] for your healthcare needs today. Please realize this is an emergency room and that we are providing you with a medical screening exam and this may not be complete and all inclusive of all the testing and or work up that you may need to determine your ailment or severity of your illness. You have been screened and evaluated and felt safe for discharge. Health conditions do change or evolve sometimes and as such it is important that you follow up with your Primary Doctor to be re checked, 3-5 days is a general good time frame for follow up. You are always welcome to return to the ED for re assessment if your symptoms are worsening or you have new concerns Print Language: French Coding Level of Care Code ED Recreation Facility Attendant for Elizabeth Dixon
--- NOTE | 2024-12-22 19:05 | CTR_ITS ---
PROCEDURE INFORMATION: Exam: CT Abdomen And Pelvis With Contrast Exam date and time: 12/22/2024 7:13 PM Age: 44 years old Clinical indication: Abdominal pain; Localized; Lower; Prior surgery; Surgery date: 6+ months; Surgery type: Gb, tubal, , gastric sleeve, gastric bypass TECHNIQUE: Imaging protocol: Computed tomography of the abdomen and pelvis with contrast. Radiation optimization: All CT scans at this facility use at least one of these dose optimization techniques: automated exposure control; mA and/or kV adjustment per patient size (includes targeted exams where dose is matched to clinical indication); or iterative reconstruction. Contrast material: OMNI 350; Contrast volume: 100 ml; Contrast route: INTRAVENOUS (IV); COMPARISON: CR XR chest 1V portable [id number] 09/06/2021 2:12 PM RADIATION DOSE METRICS: Total DLP (mGy-cm): 633.55 FINDINGS: Esophagus: Distal esophageal wall thickening, please correlate for esophagitis. Liver: Normal. No mass. Gallbladder and biliary ducts: Cholecystectomy. Pancreas: Normal. No ductal dilation. Spleen: Normal. No splenomegaly. Adrenal glands: Normal. No mass. Kidneys and ureters: Normal. No hydronephrosis. Stomach and bowel: Prominent fluid in the small bowel without dilation may reflect an enteritis. Gastric surgical sutures. Appendix: No evidence of appendicitis. Intraperitoneal space: Unremarkable. No free air. No significant fluid collection. Vasculature: Unremarkable. No abdominal aortic aneurysm. Lymph nodes: Unremarkable. No enlarged lymph nodes. Urinary bladder: Unremarkable as visualized. Reproductive: Left ovary 2.1 cm peripherally enhancing cyst suggestive of a partially collapsed follicle. Bones/joints: Unremarkable. No acute fracture. Soft tissues: Unremarkable. CT/CT abdomen pelvis w con* [id number] IMPRESSION: 1. Prominent fluid in the small bowel without dilation may reflect an enteritis. 2. Left ovary 2.1 cm peripherally enhancing cyst suggestive of a partially collapsed follicle. 3. Distal esophageal wall thickening, please correlate for esophagitis. 4. Gastric surgical sutures. 5. Cholecystectomy.
[2024-12-22] MEDS: iohexol 350 mg/mL 500 mL Btl (per mL) IV (19:16)
[2024-12-22] MEDS: ondansetron 2 mg/ML SDV 2 mL 4 MG IVP (19:25)
[2024-12-22] MEDS: sodium chloride 0.9% 1,000 ML 999 ML IV (19:26)
[2024-12-22] MEDS: cefTRIAXone 1,000 mg SDV 1000 MG IVP (19:28)
[2024-12-22 19:29] VITALS: BP 179/67; PULSE 65; O2SAT 100
[2024-12-22 19:32] VITALS: BP 133/68; PULSE 66; O2SAT 97
[2024-12-22 19:58] VITALS: RESP 16; O2SAT 94
[2024-12-22] MEDS: morphine 4 mg/mL SDV 1 mL IVP (19:58)
[2024-12-22 20:27] VITALS: BP 144/100; PULSE 73; O2SAT 100
== END 2024-12-22 20:28 | disposition home or self-care (01) ==
PROVIDERS: Emergency Medicine; Emergency Provider Emergency Medicine; PCP Family Medicine
DX: N39.0 Urinary tract infection, site not specified (principal); K52.9 Noninfective gastroenteritis and colitis, unspecified; E86.0 Dehydration; D64.9 Anemia, unspecified; I10 Essential (primary) hypertension
CPT/HCPCS: 36415; 74177; 80053; 81001; 83690; 84703; 85025; 87086; 93005; 96361; 96374; 96375; 99285; J0696; J2270; J2405; J7030